=== PATIENT | female | born 1980 | race Caucasian/White ===

== ENCOUNTER 2023-01-05 10:50 | Outpatient (CLI) | payer OTHER, SELFPAY ==
[2023-01-05 12:00] LABS: Hematocrit 41.9 % (37.0-47.0); Hemoglobin 14.3 g/dL (12.0-15.0); Mean Corpuscular HGB Conc 34.1 g/dl (32-36); Mean Corpuscular Hemoglobin 29.4 pg (26-34); Mean Corpuscular Volume 86.2 fl (80-100); Mean Platelet Volume 9.8 fl (7.4-10.4); Platelet Count Result 378 k/mm3 (150-375); Red Blood Count 4.86 M/mm3 (4.2-5.4); Red Cell Distribution Width 12.8 % (11.5-14.5); White Blood Count 11.5 K/mm3 (4.5-10.0)
[2023-01-05 12:13] LABS: Alanine Aminotransferase 32 U/L (6-35); Albumin Level 4.5 g/dL (3.5-5.1); Alkaline Phosphatase 52 U/L (38-126); Anion Gap 6 mmol/L (8-16); Aspartate Amino Transferase 29 U/L (14-36); Blood Urea Nitrogen 10 mg/dL (7-17); CRP < 0.5 mg/dL (<1.0); Calcium 8.7 mg/dL (8.4-10.2); Carbon Dioxide 29 mmol/L (22-30); Chloride 105 mmol/L (98-107); Estimated Glomerular Filt Rate > 60; Glucose 87 mg/dL (65-110); Potassium 3.3 mmol/L (3.4-5.0); Sodium 140 mmol/L (137-145)
[2023-01-05 12:42] LABS: Thyroid Stimulating Hormone Reflex 0.914 uIU/mL (0.465-4.68)
[2023-01-05 12:55] LABS: Appearance Urine Clear (Clear); Bilirubin Urine 1+ (Negative); Blood Urine Negative (Negative); Color Urine Yellow (Yellow); Glucose Urine UA Negative (Negative); Ketones Urine 2+ mg/dL (Negative); Leukocyte Esterase Ur Negative LEU/UL (Negative); Nitrate Urine Negative (Negative); Protein Urine 1+ mg/dL (Negative); Specific Grav Ur 1.025 (1.001-1.035)
[2023-01-05 13:01] LABS: Erythrocyte Sedimentation Rate 12 mm/hr (0-20)
[2023-01-05 13:01] LABS: Bacteria Urine Trace /hpf; Mucus Urine Heavy /lpf; Squamous Epithelial Cell Urine Few /hpf (Few); WBC Urine 0-3 /hpf
[2023-01-05 13:02] LABS: Add Urine Microscopic? YES
[2023-01-09 11:00] LABS: Gliadin AB, IgG <1.0 U/mL (<15.0); TTG IGA AB <1.0 U/mL (<15.0)
== END 2023-01-05 10:51 | disposition home or self-care (01) ==
LOC: ANHLAB 10:52
PROVIDERS: PCP Nurse Practitioner Family; Visit Provider Nurse Practitioner
DX: R11.2 Nausea with vomiting, unspecified (principal); R63.0 Anorexia; R68.81 Early satiety; R63.4 Abnormal weight loss
CPT/HCPCS: 36415; 80053; 81001; 83516; 84443; 85027; 85652; 86140; 86255

== ENCOUNTER 2023-05-16 00:31 | Day surgery (SDC) | payer OTHER, SELFPAY ==
[2023-05-07 13:33] VITALS: BMI 29.8
[2023-05-16 09:47] VITALS: BP 117/68; PULSE 71; RESP 18; TEMP 36.4; O2SAT 100
[2023-05-16] MEDS: LACTATED RINGERS 1,000 ML 150 ML IV CONT (10:01)
--- NOTE | 2023-05-16 10:16 | WPDANESEPPF ---
Anes - Initial Pre Proc Eval Procedure: Operation Date: 05/16/23 11:00 Proposed Procedures p Esophagogastroduodenoscopy - Sai Sanchez MD Date/Time: 05/16/23 10:16 Surgeon: Sai Sanchez MD Pre Op Diagnosis: nausea,vomiting,epigastric pain,early satiety, Patient Data Age: 42 Gender: F Height: 1.6 m Weight: 73.9 kg Last Vital Signs Temp 97.6 F 05/16/23 09:47 Pulse 71 05/16/23 09:47 Resp 18 05/16/23 09:47 BP 117/68 05/16/23 09:47 Pulse Ox 100 05/16/23 09:47 O2 Del Method Room Air 05/16/23 09:47 Allergies Allergy/AdvReac Type Severity Reaction Status Date / Time Penicillins Allergy Severe SWELLING Verified 05/16/23 09:46 (HAS TOLERATED ANCEF) morphine Allergy Intermediate Rash Verified 05/16/23 09:46 Sulfa (Sulfonamide Allergy Hives Verified 05/16/23 09:46 Antibiotics) Home Medications Medication Instructions Recorded Confirmed Type albuterol (refill) 90 90 mcg inhalation Q4H PRN 12/22/22 05/07/23 History mcg/actuation aerosol inhaler shortness fo breath amlodipine 10 mg tablet 10 mg PO DAILY 12/22/22 05/07/23 History duloxetine 60 mg capsule,delayed 60 mg PO DAILY 12/22/22 05/07/23 History release lisinopril 10 mg tablet 10 mg PO DAILY 12/22/22 05/07/23 History ondansetron 8 mg disintegrating 8 mg PO Q8H PRN Nausea 12/22/22 05/07/23 History tablet trazodone 150 mg tablet 150 mg PO QHS PRN Insomnia 12/22/22 05/07/23 History esomeprazole magnesium 40 mg 40 mg PO BID #60 caps 01/05/23 05/07/23 Rx capsule,delayed release (Nexium) metoclopramide HCl 5 mg tablet 5 mg PO .COMPLEX #120 tabs 01/05/23 05/07/23 Rx cholecalciferol (vitamin D3) 25 25 mcg PO DAILY 05/07/23 05/07/23 History mcg (1,000 unit) tablet (Vitamin D3) sucralfate 1 gram tablet 1 g PO QID 05/07/23 05/07/23 History Patient hx anesthesia problems: none Family hx anesthesia problems: none Results Review: All pre-operative results and documents have been reviewed as part of the pre-operative evaluation. [facility] Past Medical History Medical History (Updated 01/05/23 @ 13:06 by Lulu Stevens, CRITICAL CARE CLINICAL NURSE SPECIALIST) Abnormal weight loss Change in bowel habits Chronic diarrhea Decreased appetite Early satiety Epigastric pain Grief Nausea and vomiting Surgical History Surgical History (Updated 01/05/23 @ 10:15 by Tonny Portillo) H/O abdominoplasty H/O sinus surgery Social History Social History Smoking status: Never smoker Alcohol use details: seldom Substance use type: does not use Living arrangements: with family Spiritual care concerns: No Anes - Eval Final PreProcedure Day of Procedure 05/16/23 10:16 Patient weight: normal Heart: regular rate and rhythm Lungs: clear to auscultation Airway: Mallampati scale class II Neurological: alert and oriented Last oral intake: >/= 8 hours ASA classification: II Emergent: no Anesthetic plan: proceed Anesthesia type and monitoring: general GIVS and standard monitoring Results Review: All pre-operative results and documents have been reviewed as part of the pre-operative evaluation. Informed Consent: The patient's anesthetic plan and its attendant risks and benefits were discussed with the patient/family/POA. Questions were solicited and answers provided to the satisfaction of the patient/family/POA.
--- NOTE | 2023-05-16 10:23 | PM.HPGS ---
History of Present Illness History of Present Illness Consent: Risks, benefits, and alternatives have been discussed and questions answered. Patient agrees to proceed with procedure. Chief complaint: nausea,vomiting,epigastric pain,early satiety, Narrative: Therese Singleton is a 42 year old female with gerd for which nexium bid is helping but still with persistent nausea and eating less, she lost some weight, never had egd. Liver enzymes, tsh normal, negative serology for celiac. No recent imaging. Review of Systems Constitutional: Constitutional: Denies headache(s) and Denies weakness Eyes: Eyes: Denies blurry vision ENT: Reports Normal hearing present, Denies headache(s) and Denies neck pain Cardiovascular: Cardiovascular: Denies chest pain and Denies dyspnea Respiratory: Respiratory: Denies dyspnea Gastrointestinal: Gastrointestinal: Reports no additional gastrointestinal complaints Genitourinary: Genitourinary: Denies dysuria Musculoskeletal: Musculoskeletal: Denies neck pain Integumentary/Breasts: Skin/Breast: Denies dry skin Neurologic: Reports Normal hearing present, Denies headache(s) and Denies weakness Psychiatric: Psychiatric: Denies anxiety Endocrine: Endocrine: Denies change in body appearance Hematologic/Lymphatic: Hematologic/Lymphatic: Denies easy bleeding Allergic/Immunologic: Allergic/Immunologic: Denies urticaria PMFSH Past Medical History Medical History (Updated 01/05/23 @ 13:06 by Lulu Stevens APRN) Abnormal weight loss Change in bowel habits Chronic diarrhea Decreased appetite Early satiety Epigastric pain Grief Nausea and vomiting Surgical History Surgical History (Updated 01/05/23 @ 10:15 by Tonny Portillo) H/O abdominoplasty H/O sinus surgery Social History Social History Smoking status: Never smoker Alcohol use details: seldom Substance use type: does not use Living arrangements: with family Spiritual care concerns: No Meds Home Medications and Allergies Home Medications Medication Instructions Recorded Confirmed Type albuterol (refill) 90 90 mcg inhalation Q4H PRN 12/22/22 05/07/23 History mcg/actuation aerosol inhaler shortness fo breath amlodipine 10 mg tablet 10 mg PO DAILY 12/22/22 05/07/23 History duloxetine 60 mg capsule,delayed 60 mg PO DAILY 12/22/22 05/07/23 History release lisinopril 10 mg tablet 10 mg PO DAILY 12/22/22 05/07/23 History ondansetron 8 mg disintegrating 8 mg PO Q8H PRN Nausea 12/22/22 05/07/23 History tablet trazodone 150 mg tablet 150 mg PO QHS PRN Insomnia 12/22/22 05/07/23 History esomeprazole magnesium 40 mg 40 mg PO BID #60 caps 01/05/23 05/07/23 Rx capsule,delayed release (Nexium) metoclopramide HCl 5 mg tablet 5 mg PO .COMPLEX #120 tabs 01/05/23 05/07/23 Rx cholecalciferol (vitamin D3) 25 25 mcg PO DAILY 05/07/23 05/07/23 History mcg (1,000 unit) tablet (Vitamin D3) sucralfate 1 gram tablet 1 g PO QID 05/07/23 05/07/23 History Allergies Allergy/AdvReac Type Severity Reaction Status Date / Time Penicillins Allergy Severe SWELLING Verified 05/16/23 09:46 (HAS TOLERATED ANCEF) morphine Allergy Intermediate Rash Verified 05/16/23 09:46 Sulfa (Sulfonamide Allergy Hives Verified 05/16/23 09:46 Antibiotics) Vital Signs Vital Signs - 24 hr 05/16/23 09:47 Temperature 97.6 F Pulse Rate 71 Respiratory Rate 18 Blood Pressure 117/68 Pulse Oximetry 100 Oxygen Delivery Room Air Exam Const: General: comfortable and no acute distress HENMT: Face/Nose/Sinus: Normal nares present Eyes: General: appearance normal, both eyes and all related structures Neck: Neck: no JVD Resp: Auscultation: clear to auscultation bilaterally Cardio: Rate: regular rate Rhythm: regular rhythm GI: Inspection: non-distended GI Palp: Yes Soft to palpation Skin: General skin exam: normal color Neuro: General: gait normal Speech: normal speech Extrem: General:
[2023-05-16] MEDS: BENZOCAINE (*SP) 60 ML SPRAY CAN (HURRICAINE) 1 SPRAY MUCOUS MEM (10:25)
[2023-05-16 10:35] VITALS: BP 90/53; PULSE 85; RESP 22; O2SAT 100
[2023-05-16 10:45] VITALS: BP 111/62; PULSE 71; RESP 14; O2SAT 100
== END 2023-05-16 10:57 | disposition home or self-care (01) ==
PROVIDERS: PCP Nurse Practitioner Family; Visit Provider Internal Medicine Gastroenterology
PROC: 0DJ08ZZ Inspection of Upper Intestinal Tract, Via Natural or Artificial Opening Endoscopic (ICD-10-PCS; CPT 43235; principal; 2023-05-16 11:00)
DX: K20.0 Eosinophilic esophagitis (principal); R63.4 Abnormal weight loss; R11.2 Nausea with vomiting, unspecified; Z79.51 Long term (current) use of inhaled steroids
CPT/HCPCS: 43239; 88305; J2704; J7120

== ENCOUNTER 2024-07-22 10:23 | Emergency (ER) | payer OTHER, SELFPAY ==
[2024-07-22 10:37] VITALS: BP 155/95; PULSE 85; RESP 18; TEMP 37.3; O2SAT 99
--- NOTE | 2024-07-22 10:46 | ED.DENTAL ---
HPI - Dental/Oral General Chief complaint: Dental/Oral Stated complaint: cut inside mouth Time Seen by Provider: 07/22/24 10:34 Source: patient Mode of arrival: ambulatory Limitations: no limitations History of Present Illness HPI Narrative: Patient is a 43 y/o female who presents to the ED with c/o laceration to her inner gum. Patient reports she has a strong history of anxiety and was at a family function yesterday and feeling very anxious. She was nervously biting on her inner lower lip. States she now has a laceration there which is causing her pain. Reports some tingling in her lip. Denies dental pain. Related Data Home Medications Medication Instructions Recorded Confirmed albuterol (refill) 90 90 mcg inhalation Q4H PRN 12/22/22 05/07/23 mcg/actuation aerosol inhaler shortness fo breath amlodipine 10 mg tablet 10 mg PO DAILY 12/22/22 05/07/23 duloxetine 60 mg capsule,delayed 60 mg PO DAILY 12/22/22 05/07/23 release lisinopril 10 mg tablet 10 mg PO DAILY 12/22/22 05/07/23 ondansetron 8 mg disintegrating 8 mg PO Q8H PRN Nausea 12/22/22 05/07/23 tablet trazodone 150 mg tablet 150 mg PO QHS PRN Insomnia 12/22/22 05/07/23 cholecalciferol (vitamin D3) 25 25 mcg PO DAILY 05/07/23 05/07/23 mcg (1,000 unit) tablet (Vitamin D3) sucralfate 1 gram tablet 1 g PO QID 05/07/23 05/07/23 Allergies Allergy/AdvReac Type Severity Reaction Status Date / Time Penicillins Allergy Severe SWELLING Verified 07/22/24 10:24 (HAS TOLERATED ANCEF) morphine Allergy Intermediate Rash Verified 07/22/24 10:24 Sulfa (Sulfonamide Allergy Hives Verified 07/22/24 10:24 Antibiotics) Review of Systems Review of Systems: All systems reviewed & are unremarkable except as noted in HPI. All systems reviewed & are unremarkable except as noted in HPI and below PMFSH Past Medical History Medical History Abnormal weight loss Change in bowel habits Chronic diarrhea Decreased appetite Early satiety Epigastric pain Grief Nausea and vomiting Surgical History Surgical History H/O abdominoplasty H/O sinus surgery Social History Social History Smoking status: Never smoker Alcohol use details: seldom Substance use type: does not use Living arrangements: with family Spiritual care concerns: No Exam Narrative: GENERAL: Well appearing, NAD HEAD: Normocephalic, atraumatic. ENT: Normal dentition. No appreciable dental caries. No stridor or distress. Area of L buccal mucosa into left lower lip with jagged macerated tissue from chewing. No purulent drainage. No bleeding. Sensation intact. RESPIRATORY: Airway patent, respirations nonlabored. CARDIOVASCULAR: Regular rate and rhythm MUSCULOSKELETAL: Moves all extremities. No gross deformities. SKIN: Warm, dry, normal color. NEURO: A&O X3. Speech clear. PSYCHIATRIC: Appropriate mood and affect. Normal interaction. Course Vital Signs Vital signs: Vital Signs Temperature 99.1 F 07/22/24 10:37 Pulse Rate 85 07/22/24 10:37 Respiratory Rate 18 07/22/24 10:37 Blood Pressure 155/95 H 07/22/24 10:37 Pulse Oximetry 99 07/22/24 10:37 Oxygen Delivery Room Air 07/22/24 10:37 Temperature 99.1 F 07/22/24 10:37 Pulse Rate 85 07/22/24 10:37 Respiratory Rate 18 07/22/24 10:37 Blood Pressure 155/95 H 07/22/24 10:37 Pulse Oximetry 99 07/22/24 10:37 Oxygen Delivery Room Air 07/22/24 10:37 MDM - Dental/Oral MDM Narrative Medical decision making narrative: Patient with chewing injury to left buccal mucosa, left inner lower lip. Will place patient on antibiotics to prevent infection. Will also prescribe chlorhexidine mouthwash. Patient advised to follow-up with dentist. Given return precautions. Discharged in stable condition.
[2024-07-22 11:16] VITALS: TEMP 36.8
== END 2024-07-22 11:18 | disposition home or self-care (01) ==
PROVIDERS: Emergency Provider Physician Assistant; PCP Nurse Practitioner Family
DX: S00.502A Unspecified superficial injury of oral cavity, initial encounter (principal); F41.9 Anxiety disorder, unspecified; Z79.899 Other long term (current) drug therapy; X58.XXXA Exposure to other specified factors, initial encounter
CPT/HCPCS: 99283

== ENCOUNTER 2024-10-11 14:24 | Emergency (ER) | payer OTHER, SELFPAY ==
[2024-10-11] VITALS (23 sets, daily range): BP systolic 128–162; BP diastolic 75–101; PULSE 79–103; RESP 12–21; TEMP 36.4; O2SAT 95–100
--- NOTE | ~2024-10-11 | XR_ITS ---
XR chest 2V DATE: 10/11/2024 16:20 INDICATION: Shortness of breath, dizziness, hypertension, headache TECHNIQUE: PA and lateral views COMPARISON: None FINDINGS: Normal heart size. No hilar or mediastinal enlargement. Moderate hyperinflation. No pulmonary infiltrate or consolidation, pleural effusion or pulmonary vasc ular congestion or pneumothorax is detected. IMPRESSION: Moderate bilateral hyperinflation; otherwise no active cardiopulmonary disease Reviewed, dictated and finalized at [facility]. NG [employer] IMPRESSION: Moderate bilateral hyperinflation; otherwise no active cardiopulmon saul disease
--- NOTE | ~2024-10-11 | CT_ITS ---
EXAMINATION: CT brain wo con DATE: 10/11/2024 16:16 INDICATION: Headache, dizziness, hypertension TECHNIQUE: Computed tomography (CT) of the head was performed without intravenous contrast. The mA wa s adjusted according to patient size. Iterative reconstruction technique was employed. Exam dose: 60 5.33 mGy-cm total exam DLP. COMPARISON: None FINDINGS: No intracranial mass lesion or hemorrhage or cerebrovascular accident. Normal ventricular s ize. Normal johnson-white matter differentiation. No midline shift or mass effect. No subdural or epidural hematoma. The orbital contents are unremarkable. There is patchy soft tissue thickening of the ethmoid air cells and a small fluid level in the latera l dependent right sphenoid sinus, minimal mucoperiosteal thickening of the maxillary sinuses. The mastoid air cells are well-developed and aerated. No fracture or bone destruction of the cranial vault. IMPRESSION: No significant intracranial abnormality Mild paranasal sinus disease Reviewed, dictated and finalized at [facility]. Reviewed, dictated and finalized at location [facility]. ER [employer]
--- NOTE | 2024-10-11 15:35 | ECG_ITS ---
Test Date: 2024-10-11 15:50:03 Measurements Intervals Twilight Rate: 87 P: 47 MO: 148 QRS: 27 QRSD: 91 T: 28 QT: 365 QTc: 440 Interpretive Statements SINUS RHYTHM NONSPECIFIC ST & T-WAVE ABNORMALITY- INF/LAT LEADS BASELINE ARTIFACT- V4-V6 BORDERLINE ECG No previous ECG available for comparison Electronically Signed On 10-11-2024 15:51:36 [employer] [employer] by Alejo Sheppard D.O.
--- NOTE | 2024-10-11 15:54 | ED.RECABL ---
HPI - Recheck/Abnormal Lab/Rx General Chief Complaint: Recheck/Abnormal Lab/Rx Stated Complaint: HTN from urgent care Time Seen by Provider: 10/11/24 15:35 Source: patient Mode of arrival: ambulatory Limitations: no limitations History of Present Illness HPI narrative: Patient is a 44-year-old female who presents the ED with report of elevated blood pressure and headache. Patient reports over the last 1-1.5 week, she has been having a persistent constant diffuse headache. Has remote history of migraines. Has been trying Excedrin, Tylenol, Advil at home without improvement. Reports intermittent dizziness, intermittent nausea, mild photophobia/phonophobia. Also reports having intermittent shortness of breath, not significantly worse with exertion. She notes that her blood pressure is elevated over the last week with the symptoms. She has history of hypertension was previously on amlodipine, but stopped taking this on her own several months ago. Did begin taking this again 5 days ago, but states her blood pressure has still been elevated. Denies chest pain. Denies fevers, vision changes, focal weakness or numbness. Sent from urgent care here for further evaluation. Related Data Home Medications Medication Instructions Recorded Confirmed albuterol (refill) 90 90 mcg inhalation Q4H PRN 12/22/22 05/07/23 mcg/actuation aerosol inhaler shortness fo breath amlodipine 10 mg tablet 10 mg PO DAILY 12/22/22 05/07/23 duloxetine 60 mg capsule,delayed 60 mg PO DAILY 12/22/22 05/07/23 release lisinopril 10 mg tablet 10 mg PO DAILY 12/22/22 05/07/23 ondansetron 8 mg disintegrating 8 mg PO Q8H PRN Nausea 12/22/22 05/07/23 tablet trazodone 150 mg tablet 150 mg PO QHS PRN Insomnia 12/22/22 05/07/23 cholecalciferol (vitamin D3) 25 25 mcg PO DAILY 05/07/23 05/07/23 mcg (1,000 unit) tablet (Vitamin D3) sucralfate 1 gram tablet 1 g PO QID 05/07/23 05/07/23 Allergies Allergy/AdvReac Type Severity Reaction Status Date / Time Penicillins Allergy Severe SWELLING Verified 07/22/24 10:24 (HAS TOLERATED ANCEF) morphine Allergy Intermediate Rash Verified 07/22/24 10:24 Sulfa (Sulfonamide Allergy Hives Verified 07/22/24 10:24 Antibiotics) Review of Systems Review of Systems: All systems reviewed & are unremarkable except as noted in HPI. All systems reviewed & are unremarkable except as noted in HPI and below PMFSH Past Medical History Medical History Abnormal weight loss Change in bowel habits Chronic diarrhea Decreased appetite Early satiety Epigastric pain Grief Nausea and vomiting Surgical History Surgical History H/O abdominoplasty H/O sinus surgery Social History Social History Smoking status: Never smoker Alcohol use details: seldom Substance use type: does not use Living arrangements: with family Spiritual care concerns: No Exam Narrative: GENERAL: Well appearing, obese with BMI of 30.2, non-toxic, in no acute distress. HEAD: Normocephalic, atraumatic. EYES: PERRL/EOMI, no nystagmus RESPIRATORY: Airway patent, respirations nonlabored. Clear to auscultation bilaterally, no rales, rhonchi, wheezing. CARDIOVASCULAR: Regular rate and rhythm without murmurs, rubs, or gallops. MUSCULOSKELETAL: Moves all extremities. No gross deformities. SKIN: Warm, dry, normal color. NEURO: A&O X3. Speech clear. Cranial nerves II-XII grossly intact. Steady gait. No ataxic movements. No focal deficits. Moves all extremities equally. PSYCHIATRIC: Appropriate mood and affect. Normal interaction. Course Vital Signs Vital signs: Vital Signs Temperature 97.6 F 10/11/24 14:52 Pulse Rate 97 10/11/24 14:52 Respiratory Rate 16 10/11/24 14:52 Blood Pressure 162/86 H 10/11/24 14:52 Pulse Oximetry 98 10/11/24 14:52 Temperature 97.6 F 10/11/24 14:52 Pulse Rate 79 10/11/24 19:02 Respiratory Rate 20 10/11/24 19:02 Blood Pressure 149/75 H 10/11/24 19:02 Pulse Oximetry 100 10/11/24 19:02 MDM - Recheck/Abnormal Lab/Rx MDM Narrative Medical decision making narrative: Patient presented to ED with 1.5 week history of headache, elevated blood pressures. Patient initially in the 160s systolic. States she was previously on amlodipine, but has only been taking this for the last 5 days consistently. She is neurologically intact on exam. No evidence of focal deficits. Symptoms seem most consistent with migraine. CT brain was obtained and without acute findings. Chest x-ray without evidence of focal infiltrate. Laboratory studies were obtained and fairly unremarkable. No evidence of end-organ damage. Troponin undetectable. BNP within normal limits. Patient was treated with a migraine cocktail and is feeling much better on re-evaluation. Headache is much improved. After migraine cocktail, BP did improve into the 120s without further intervention. Feel hypertension is most likely situational. Patient does admit that she has been under increased stress recently with several family members being sick. May also be pain related as it did improve with pain control here. Advised patient to continue to monitor blood pressures at home, have very close follow-up with PCP for further evaluation and continued medication management. Recommended to continue Tylenol/Ibuprofen as needed for further headaches. Discussed strict return precautions. She agrees with plan and feels comfortable going home. Discharged in stable condition. Medical Records Attestation: I reviewed the patient's medical records. Lab Data Attestation: I reviewed the patient's lab results. 10/11/24 15:54 10/11/24 15:54 Labs: Lab Results 10/11/24 Range/Units 15:54 WBC 11.6 H (4.5-10.0) K/mm3 RBC 4.75 (4.2-5.4) M/mm3 Hgb 14.5 (12.0-15.0) g/dL Hct 42.7 (37.0-47.0) % MCV 89.9 (80-100) fl MCH 30.5 (26-34) pg MCHC 34.0 (32-36) g/dl RDW 12.5 (11.5-14.5) % Plt Count 393 H (150-375) k/mm3 MPV 9.8 (7.4-10.4) fl Immature Gran % (Auto) 0.2 (0-0.5) % Neut % (Auto) 63.8 (45.5-73.1) % Lymph % (Auto) 25.6 (18.3-44.2) % [place] % (Auto) 7.9 (2.6-8.5) % Eos % (Auto) 1.9 (0-4.4) % Baso % (Auto) 0.6 (0.2-1.2) % Lymph # (Auto) 2.97 (0.9-3.2) K/mm3 [place] # (Auto) 0.9 H (0.1-0.6) K/mm3 Eos # (Auto) 0.2 (0-0.3) K/mm3 Baso # (Auto) 0.1 (0.0-0.1) K/mm3 Abs Immat Gran (auto) 0.02 (0.00-0.031) K/mm3 Absolute Neuts (auto) 7.4 H (1.3-6.7) K/mm3 Absolute Nucleated RBC 0.000 (0.0-0.012) K/mm3 Nucleated RBC % 0.0 (0.0-0.2) % Sodium 139 (137-145) mmol/L Potassium 3.7 (3.4-5.0) mmol/L Chloride 104 (98-107) mmol/L Carbon Dioxide 27 (22-30) mmol/L Anion Gap 8 (4-12) mmol/L BUN 14 (7-17) mg/dL Creatinine 0.60 L (0.7-1.0) mg/dL Estim Creat Clear Calc 102 ml/min Estimated GFR > 60 (59 - ) Glucose 99 (65-110) mg/dL Calcium 9.6 (8.4-10.2) mg/dL Total Bilirubin 0.9 (0.2-1.3) mg/dL AST 24 (14-36) U/L ALT 19 (6-35) U/L Alkaline Phosphatase 53 (38-126) U/L Troponin I < 0.012 (0.000-0.034) ng/mL NT-Pro-B Natriuret Pep < 20 (19.9-100) pg/mL Total Protein 8.0 (6.3-8.2) g/dL Albumin 4.8 (3.5-5.1) g/dL Imaging Data Attestation: I personally reviewed and interpreted this imaging study as follows: Radiologist's impression: ITS Impressions Chest X-Ray 10/11/24 16:21 IMPRESSION: Moderate bilateral hyperinflation; otherwise no active cardiopulmonary disease Head CT 10/11/24 16:23 IMPRESSION: No significant intracranial abnormality Mild paranasal sinus disease ECG Data EKG #1: Attestation: I personally reviewed and interpreted this ECG as follows: ECG completion date: 10/11/24 ECG completion time: 15:50 EKG Interpretation: normal rate (87), sinus rhythm and no ST changes Discharge Plan Discharge Clinical Impression: Situational hypertension Migraine Qualifiers: Migraine type: unspecified Status migrainosus presence: without status migrainosus Intractability: not intractable Qualified Code(s): G43.909 - Migraine, unspecified, not intractable, without status migrainosus Patient Disposition: Home, Self-Care Condition: Stable Instructions: Antibiotic Form, Acute Headache (ED), Chronic Hypertension (ED), Hypertension (ED) Additional Instructions: Continue to monitor blood pressures at home. Follow-up closely with your primary care doctor to determine need for blood pressure medication. Continue Tylenol/ibuprofen as needed for headaches. Stay well hydrated. Recommend low light/low stimulus environment, limiting screen time. Return to the ED if you experience worsening or severe pain, significantly elevated blood pressures, unable to keep down food or drink, vision changes, numbness or weakness of arm or leg, chest pain, difficulty breathing, or any other symptoms of concern. Prescriptions: No Action albuterol (refill) 90 mcg/actuation aerosol 90 mcg inhalation Q4H PRN (Reason: shortness fo breath) amlodipine 10 mg tablet 10 mg PO DAILY duloxetine 60 mg capsule,delayed release(DR/EC) 60 mg PO DAILY lisinopril 10 mg tablet 10 mg PO DAILY ondansetron 8 mg tablet,disintegrating 8 mg PO Q8H PRN (Reason: Nausea) trazodone 150 mg tablet 150 mg PO QHS PRN (Reason: Insomnia) esomeprazole magnesium [Nexium] 40 mg capsule,delayed release(DR/EC) 40 mg PO BID Qty: 60 3RF cefdinir 300 mg capsule 300 mg PO Q12H 7 Days Qty: 14 0RF chlorhexidine gluconate 0.12 % mouthwash 15 ml buccal BID Qty: 15 0RF metronidazole 500 mg tablet 500 mg PO Q8H 7 Days Qty: 21 0RF sucralfate 1 gram Tablet 1 g PO QID cholecalciferol (vitamin D3) [Vitamin D3] 25 mcg (1,000 unit) Tablet 25 mcg PO DAILY metoclopramide HCl 5 mg tablet See Rx Instructions .ROUTE .COMPLEX Qty: 120 3RF Dose Instruction: TAKE 1TAB IN THE MORNING AND AT BEDTIME THEN INCREASE TO BEFORE MEALS AND AT BEDTIME IF TOLERATING Rx Instructions: TAKE 1TAB IN THE MORNING AND AT BEDTIME THEN INCREASE TO BEFORE MEALS AND AT BEDTIME IF TOLERATING Follow-up/Referrals: [place],Gabe Smith, DEPUTY REGISTER OF DEEDS [Primary Care Provider] - Time of Disposition: 18:50
[2024-10-11 16:01] LABS: Basophils Absolute Auto 0.1 K/mm3 (0.0-0.1); Basophils Percent Auto 0.6 % (0.2-1.2); Eosinophils Absolute Auto 0.2 K/mm3 (0-0.3); Eosinophils Percent Auto 1.9 % (0-4.4); Hematocrit 42.7 % (37.0-47.0); Hemoglobin 14.5 g/dL (12.0-15.0); Immature Granulocyte Absolute 0.02 K/mm3 (0.00-0.031); Immature Granulocyte Percent A 0.2 % (0-0.5); Lymphocytes Absolute Auto 2.97 K/mm3 (0.9-3.2); Lymphocytes Percent Auto 25.6 % (18.3-44.2); Mean Corpuscular Hemoglobin 30.5 pg (26-34); Mean Corpuscular Volume 89.9 fl (80-100); Mean Platelet Volume 9.8 fl (7.4-10.4); Monocytes Absolute Auto 0.9 K/mm3 (0.1-0.6); Monocytes Percent Auto 7.9 % (2.6-8.5); Neutrophils Absolute Auto 7.4 K/mm3 (1.3-6.7); Neutrophils Percent Auto 63.8 % (45.5-73.1); Platelet Count Result 393 k/mm3 (150-375); Red Blood Count 4.75 M/mm3 (4.2-5.4); Red Cell Distribution Width 12.5 % (11.5-14.5); White Blood Count 11.6 K/mm3 (4.5-10.0)
[2024-10-11 16:18] LABS: Alanine Aminotransferase 19 U/L (6-35); Albumin Level 4.8 g/dL (3.5-5.1); Alkaline Phosphatase 53 U/L (38-126); Anion Gap 8 mmol/L (4-12); Aspartate Amino Transferase 24 U/L (14-36); Bilirubin,Total 0.9 mg/dL (0.2-1.3); Blood Urea Nitrogen 14 mg/dL (7-17); Calcium 9.6 mg/dL (8.4-10.2); Carbon Dioxide 27 mmol/L (22-30); Chloride 104 mmol/L (98-107); Estimated CRCL calculation 102 ml/min; Estimated Glomerular Filt Rate > 60; Glucose 99 mg/dL (65-110); Potassium 3.7 mmol/L (3.4-5.0); Sodium 139 mmol/L (137-145)
[2024-10-11 16:27] LABS: NT Pro B Type Natriuretic Pept < 20 pg/mL (19.9-100)
[2024-10-11 16:30] LABS: Troponin I < 0.012 ng/mL (0.000-0.034)
[2024-10-11] MEDS: ACETAMINOPHEN 500 MG TABLET 1000 MG PO (16:55)
[2024-10-11] MEDS: METOCLOPRAMIDE HCL INJ 10 MG/2 ML VIAL IV PUSH (16:56)
[2024-10-11] MEDS: KETOROLAC 30 MG/ML VIAL (*BKC) IV PUSH (16:56)
[2024-10-11] MEDS: diphenhydrAMINE HCl INJ 50 MG/ML VIAL 25 MG IV PUSH (16:57)
[2024-10-11] MEDS: SODIUM CHLORIDE 0.9% IV 1,000 ML 999 ML IV CONT (16:57)
== END 2024-10-11 19:04 | disposition home or self-care (01) ==
PROVIDERS: Emergency Provider Physician Assistant; PCP Nurse Practitioner Family
DX: G43.909 Migraine, unspecified, not intractable, without status migrainosus (principal); I10 Essential (primary) hypertension; J32.9 Chronic sinusitis, unspecified
CPT/HCPCS: 36415; 70450; 71046; 80053; 83880; 84484; 85025; 93005; 96361; 96374; 96375; 99284; A9270; J1200; J1885; J2765; J7030

== ENCOUNTER 2025-02-06 15:57 | Emergency (ER) | payer OTHER, SELFPAY ==
--- NOTE | 2025-02-06 16:02 | ED_ITS ---
HPI - Asthma General Chief Complaint: Asthma Stated Complaint: asthmatic,chest heaviness Time Seen by Provider: 02/06/25 16:10 Source: patient Mode of arrival: ambulatory Limitations: no limitations History of Present Illness HPI Narrative: Therese is a 44-year-old female patient presenting to the clinic today with complaints of chest heaviness, cough, and chest congestion. She reports she has a history of asthma. Has had this cough and congestion since she was diagnosed with influenza a 3 weeks ago. States the rest of her symptoms have improved however she has a nonproductive cough at this time. Has tried cough suppressants and has been having to use her albuterol inhaler more often. States she used her albuterol inhaler approximately 12 times prior to coming into the clinic today. No fever or chills. She also has a nebulizer that she uses at nighttime. Related Data Home Medications ?Medication ?Instructions ?Recorded ?Confirmed ?Last Taken ?Type albuterol (refill) 90 90 mcg inhalation Q4H PRN 12/22/22 02/06/25 Unknown History mcg/actuation aerosol inhaler shortness fo breath amlodipine 10 mg tablet 10 mg PO DAILY 12/22/22 02/06/25 Unknown History duloxetine 60 mg capsule,delayed 60 mg PO DAILY 12/22/22 02/06/25 Unknown History release lisinopril 10 mg tablet 10 mg PO DAILY 12/22/22 02/06/25 Unknown History trazodone 150 mg tablet 150 mg PO QHS PRN Insomnia 12/22/22 02/06/25 Unknown History cholecalciferol (vitamin D3) 25 25 mcg PO DAILY 05/07/23 02/06/25 Unknown History mcg (1,000 unit) tablet (Vitamin D3) sucralfate 1 gram tablet 1 g PO QID 05/07/23 02/06/25 Unknown History erenumab-aooe 140 mg/mL 140 mg subcut MONTHLY 02/06/25 02/06/25 Unknown History subcutaneous auto-injector (Aimovig Autoinjector) Allergies Allergy/AdvReac Type Severity Reaction Status Date / Time Penicillins Allergy Severe SWELLING Verified 02/06/25 15:58 (HAS TOLERATED ANCEF) morphine Allergy Intermediate Rash Verified 02/06/25 15:58 Sulfa (Sulfonamide Allergy Hives Verified 02/06/25 15:58 Antibiotics) Review of Systems Review of Systems: Pertinent positives per HPI. Patient denies any fever, chills, rash, headache, visual changes, dizziness, cough, shortness of breath, chest pain, palpitations, nausea, vomiting, diarrhea, constipation, abdominal pain, or any urinary issues. [facility] Past Medical History Medical History Abnormal weight loss Change in bowel habits Chronic diarrhea Decreased appetite Early satiety Epigastric pain Grief Nausea and vomiting Surgical History Surgical History H/O abdominoplasty H/O sinus surgery Social History Social History Smoking status: Never smoker Alcohol use details: seldom Substance use type: does not use Living arrangements: with family Spiritual care concerns: No Comments At the time of my signature, I reviewed and agree with the nursing past medical, surgical, social, and family history. There is no relevant family history pertinent to the patient complaint. Exam Narrative: General: Well-developed, well nourished, in no apparent distress Head: Normocephalic, atraumatic Eyes: Pupils equally round and reactive to light bilaterally, EOM intact, sclera and conjunctive clear, no discharge, lids normal Ears: TMs intact and clear, ear canals clear, no drainage, grossly hearing normal. Nose: Nares patent, no discharge, no inflammation, no sinus tenderness. Mouth: Oral pharynx without lesions or masses, good dentition, MMM. Neck: Supple, trachea midline, no enlargement of anterior or posterior cervical nodes, no thyroid masses or goiter palpable. Cardio: Regular rate and rhythm, s1 and s2 normal, no murmur appreciated. Resp: Lung sounds mildly diminished in the bases otherwise clear, no rhonchi, rales, wheezing or rubs Course Course Emergency Course: Portions of this record may have been created with voice recognition software. Level of Care: Express Care Visit Vital Signs Vital signs: Vital signs reviewed MDM - Asthma MDM Narrative Medical decision making narrative: At the time of visit patient is resting comfortably on the exam table. Patient appears to be nontoxic. Plan: I suspect patient has asthma exacerbation. Prescription for prednisone and refill of the albuterol inhaler was sent to the pharmacy. Supportive measures were discussed with the patient and they voiced understanding discharge instructions and agrees to treatment plan. Return precautions reviewed Differential Diagnosis Differential diagnosis: Likely Acute exacerbation, Status asthmaticus, Acute asthmatic bronchitis, PE, Pneumonia, COPD exacerbation, ARDS and Pneumothorax Discharge Plan Discharge Clinical Impression: Asthma exacerbation Qualifiers: Asthma severity: unspecified severity Asthma persistence: unspecified Qualified Code(s): J45.901 - Unspecified asthma with (acute) exacerbation Patient Disposition: Home, Self-Care Condition: Stable Instructions: Antibiotic Form, Asthma (ED) Additional Instructions: Take prescription medications only as prescribed-albuterol inhaler and prednisone Increase fluids and stay well hydrated Tylenol/motrin for pain/fever Flonase and OTC antihistamines as directed Vicks vapor rub to open sinuses Sinus rinses for congestion Cepacol spray, cough drops, throat lozenges, warm tea with honey/lemon, gargle salt water to soothe throat BRAT diet for diarrhea Clear liquids x 24 hours then advance as tolerated for nausea/vomiting Go to the ED if you develop a worsening in your condition- high fever not controlled by Tylenol or Motrin, dehydration, weakness, lethargy, shortness of breath, or chest pain. Follow up with your PCP in 3-5 days if symptoms persist. Patient Language: Serbian Prescriptions: New prednisone 20 mg tablet 40 mg PO DAILY 5 Days Qty: 10 0RF albuterol sulfate 90 mcg/actuation HFA aerosol inhaler 2 puff inhalation Q4-6H PRN (Reason: shortness of breath or wheezing) 30 Days Qty: 8.5 0RF No Action Aimovig Autoinjector 140 mg/mL auto-injector 140 mg SUBCUT MONTHLY albuterol (refill) 90 mcg/actuation aerosol 90 mcg inhalation Q4H PRN (Reason: shortness fo breath) amlodipine 10 mg tablet 10 mg PO DAILY duloxetine 60 mg capsule,delayed release(DR/EC) 60 mg PO DAILY lisinopril 10 mg tablet 10 mg PO DAILY trazodone 150 mg tablet 150 mg PO QHS PRN (Reason: Insomnia) esomeprazole magnesium [Nexium] 40 mg capsule,delayed release(DR/EC) 40 mg PO BID Qty: 60 3RF sucralfate 1 gram Tablet 1 g PO QID cholecalciferol (vitamin D3) [Vitamin D3] 25 mcg (1,000 unit) Tablet 25 mcg PO DAILY metoclopramide HCl 5 mg tablet See Rx Instructions .ROUTE .COMPLEX Qty: 120 3RF Dose Instruction: TAKE 1TAB IN THE MORNING AND AT BEDTIME THEN INCREASE TO BEFORE MEALS AND AT BEDTIME IF TOLERATING Rx Instructions: TAKE 1TAB IN THE MORNING AND AT BEDTIME THEN INCREASE TO BEFORE MEALS AND AT BEDTIME IF TOLERATING Follow-up/Referrals: Joseph Campbell MD [Primary Care Provider] - Time of Disposition: 16:13 Quality NIHSS Nursing Documentation ED NIHSS nursing documentation: reviewed/agree
[2025-02-06 16:05] VITALS: BP 142/91; PULSE 75; RESP 14; TEMP 36.5; O2SAT 96
== END 2025-02-06 16:19 | disposition home or self-care (01) ==
PROVIDERS: Emergency Provider Nurse Practitioner Family; PCP Emergency Medicine
DX: J45.901 Unspecified asthma with (acute) exacerbation (principal)
CPT/HCPCS: 99213; G0463